=== PATIENT | female | born 1990 ===

== ENCOUNTER 2017-06-21 12:36 | Inpatient (IN) | payer OTHER ==
[2017-06-21] MEDS ORDERED: Sodium Chloride 0.9% 1,000 ML IV ONE (12:51)
[2017-06-21] MEDS: Sodium Chloride 0.9% 10 ML Syringe FLUSH PRN ×6 (12:59→21:06)
--- NOTE | 2017-06-21 13:14 | EDM.PDOC ---
ED HPI GENERAL MEDICAL PROBLEM - General Chief Complaint: Drug or Alcohol Abuse Stated Complaint: withdrawl Time Seen by Provider: 06/21/17 13:14 Source of Information: Reports: Patient, EMS, RN, RN Notes Reviewed History Limitations: Reports: Altered Mental Status, Uncooperative - History of Present Illness INITIAL COMMENTS - FREE TEXT/NARRATIVE: Patient brought to ER per [facility]. EMS states she told them she took 7 Trazadone over the past 2 hours prior to arrival. She states she took the Trazadone to help her sleep as she states she is in Heroin withdrawls. She states she last did heroin 3 days ago. She states she "doesn't feel good due to all the Trazadone in her body". Patient told EMS that she has not used heroin for 3 days. Patient c/o pain in her legs. Onset: Today, Sudden Location: Reports: Lower Extremity, Left, Lower Extremity, Right Severity: Moderate Improves with: Reports: None Worsens with: Reports: None Associated Symptoms: Reports: Other (pain in legs bilaterally, extrapyramidal movements) - Related Data Allergies Allergy/AdvReac Type Severity Reaction Status Date / Time No Known Allergies Allergy Verified 06/21/17 12:43 Home Meds: Home Meds . [Unable to Verify Home Med List] 06/21/17 [History] Past Medical History - Past Health History Medical/Surgical History: Denies Medical/Surgical History Social & Family History - Tobacco Use Smoking Status *Q: Unknown Ever Smoked - Recreational Drug Use Recreational Drug Type: Reports: Heroin ED ROS GENERAL - Review of Systems Review Of Systems: ROS reveals no pertinent complaints other than HPI. ED EXAM, GENERAL - Physical Exam Exam: See Below Exam Limited By: Uncooperative General Appearance: Anxious, Other (extrapyramidal movements) Eye Exam: Bilateral Eye: Normal Inspection, PERRL Ears: Normal External Exam, Hearing Grossly Normal Nose: Normal Inspection Throat/Mouth: Normal Inspection, Normal Lips, Normal Teeth, Normal Gums, Normal Voice, No Airway Compromise Head: Atraumatic, Normocephalic Neck: Normal Inspection, Full Range of Motion Respiratory/Chest: No Respiratory Distress, Lungs Clear, Normal Breath Sounds, No Accessory Muscle Use, Chest Non-Tender Cardiovascular: Normal Peripheral Pulses, Regular Rate, Rhythm, No Edema, No Gallop, No JVD, No Murmur, No Rub Peripheral Pulses: 2+: Radial (L), Radial (R) GI/Abdominal: Normal Bowel Sounds, Soft, Non-Tender (Female) Exam: Deferred Rectal (Female) Exam: Deferred Extremities: Normal Inspection, Normal Range of Motion, Leg Pain (bilaterally) Neurological: Alert, Oriented, Normal Cognition, Normal Gait, No Motor/Sensory Deficits Psychiatric: Anxious Skin Exam: Warm, Dry, Intact, Normal Color, No Rash Lymphatic: No Adenopathy Course - Vital Signs Last Recorded V/S: Last Vital Signs Temp 97.4 F 06/21/17 13:00 Pulse 79 06/21/17 13:00 Resp 20 06/21/17 13:00 BP 109/84 06/21/17 13:00 Pulse Ox 100 06/21/17 13:00 - Orders/Labs/Meds Orders: Active Orders 24 hr Category Date Time Status Peripheral IV Care [RC] . DIRECTED Care 06/21/17 12:44 Active Sodium Chloride 0.9% [Normal Saline] 1,000 ml Med 06/21/17 12:51 Active IV .BOLUS Sodium Chloride 0.9% [Saline Flush] Med 06/21/17 12:44 Active 10 ml FLUSH ASDIRECTED PRN diphenhydrAMINE [Benadryl] Med 06/21/17 13:39 Once 50 mg IVPUSH ONETIME ONE Peripheral IV Insertion Adult [OM.PC] Stat Oth 06/21/17 12:43 Ordered Medication Orders Sodium Chloride (Normal Saline) 1,000 mls @ 999 mls/hr IV .BOLUS ONE Stop: 06/21/17 13:51 Last Admin: 06/21/17 12:57 Dose: 999 mls/hr Sodium Chloride (Saline Flush) 10 ml FLUSH ASDIRECTED PRN PRN Reason: Keep Vein Open Last Admin: 06/21/17 12:59 Dose: 10 ml Labs: Laboratory Tests 06/21/17 06/21/17 06/21/17 Range/Units 12:41 12:41 12:41 WBC (5.0-10.0) 10^3/uL RBC (4.2-5.4) 10^6/uL Hgb (12.0-16.0) g/dL Hct (37.0-47.0) % MCV (80-100) fL MCH (27.0-34.0) pg MCHC (33.0-35.0) g/dL Plt Count (150-450) 10^3/uL Neut % (Auto) (42.2-75.2) % Lymph % (Auto) (20.5-50.1) % [place] % (Auto) (2-8) % Eos % (Auto) (1.0-3.0) % Baso % (Auto) (0.0-1.0) % Sodium (135-145) mmol/L Potassium (3.6-5.0) mmol/L Chloride (101-111) mmol/L Carbon Dioxide (21.0-31.0) mmol/L Anion Gap BUN (7-18) mg/dL Creatinine (0.6-1.3) mg/dL Est Cr Clr Drug Dosing mL/min Estimated GFR (MDRD) BUN/Creatinine Ratio Glucose (74-105) mg/dL Calcium (8.4-10.2) mg/dl Total Bilirubin (0.2-1.0) mg/dL AST (10-42) IU/L ALT (10-60) IU/L Alkaline Phosphatase (42-121) IU/L Total Protein (6.7-8.2) g/dl Albumin (3.2-5.5) g/dl Globulin Albumin/Globulin Ratio Urine Color Yellow (YELLOW) Urine Appearance Slightly cloudy (CLEAR) Urine pH 7.0 (5.0-9.0) Ur Specific [place] 1.015 (1.005-1.030) Urine Protein Negative (NEGATIVE) Urine Glucose (UA) Negative (NEGATIVE) Urine Ketones Negative (NEGATIVE) Urine Occult Blood Negative (NEGATIVE) Urine Nitrite Negative (NEGATIVE) Urine Bilirubin Negative (NEGATIVE) Urine Urobilinogen 0.2 (0.2-1.0) mg/dL Ur Leukocyte Esterase Negative (NEGATIVE) Urine RBC Not seen /HPF Urine WBC 0-5 (0-5/HPF) /HPF Ur Epithelial Cells Moderate H /HPF Urine Bacteria Few (0-FEW/HPF) /HPF Urine Mucus Few H /LPF Urine HCG, Qual Negative Salicylates Urine Opiates Screen Positive H (NEGATIVE) Ur Oxycodone Screen Negative (NEGATIVE) Urine Methadone Screen Negative (NEGATIVE) Acetaminophen Ur Barbiturates Screen Negative (NEGATIVE) U Tricyclic Antidepress Negative (NEGATIVE) Ur Phencyclidine Scrn Negative (NEGATIVE) Ur Amphetamine Screen Negative (NEGATIVE) U Methamphetamines Scrn Negative (NEGATIVE) Urine MDMA Screen Negative (NEGATIVE) U Benzodiazepines Scrn Negative (NEGATIVE) Urine Cocaine Screen Negative (NEGATIVE) U Marijuana (THC) Screen Negative (NEGATIVE) Ethyl Alcohol mg/dL 06/21/17 06/21/17 Range/Units 12:56 12:56 WBC 6.5 (5.0-10.0) 10^3/uL RBC 4.50 (4.2-5.4) 10^6/uL Hgb 13.5 (12.0-16.0) g/dL Hct 40.0 (37.0-47.0) % MCV 88.9 (80-100) fL MCH 30.0 (27.0-34.0) pg MCHC 33.8 (33.0-35.0) g/dL Plt Count 318 (150-450) 10^3/uL Neut % (Auto) 64.9 (42.2-75.2) % Lymph % (Auto) 23.8 (20.5-50.1) % [place] % (Auto) 8.2 H (2-8) % Eos % (Auto) 2.5 (1.0-3.0) % Baso % (Auto) 0.6 (0.0-1.0) % Sodium 141 (135-145) mmol/L Potassium 3.8 (3.6-5.0) mmol/L Chloride 109 (101-111) mmol/L Carbon Dioxide 21.0 (21.0-31.0) mmol/L Anion Gap 14.8 BUN 10 (7-18) mg/dL Creatinine 0.6 (0.6-1.3) mg/dL Est Cr Clr Drug Dosing 147.19 mL/min Estimated GFR (MDRD) > 60 BUN/Creatinine Ratio 16.66 Glucose 119 H (74-105) mg/dL Calcium 9.7 (8.4-10.2) mg/dl Total Bilirubin 0.4 (0.2-1.0) mg/dL AST 24 (10-42) IU/L ALT 15 (10-60) IU/L Alkaline Phosphatase 41 L (42-121) IU/L Total Protein 7.7 (6.7-8.2) g/dl Albumin 4.5 (3.2-5.5) g/dl Globulin 3.2 Albumin/Globulin Ratio 1.41 Urine Color (YELLOW) Urine Appearance (CLEAR) Urine pH (5.0-9.0) Ur Specific [place] (1.005-1.030) Urine Protein (NEGATIVE) Urine Glucose (UA) (NEGATIVE) Urine Ketones (NEGATIVE) Urine Occult Blood (NEGATIVE) Urine Nitrite (NEGATIVE) Urine Bilirubin (NEGATIVE) Urine Urobilinogen (0.2-1.0) mg/dL Ur Leukocyte Esterase (NEGATIVE) Urine RBC /HPF Urine WBC (0-5/HPF) /HPF Ur Epithelial Cells /HPF Urine Bacteria (0-FEW/HPF) /HPF Urine Mucus /LPF Urine HCG, Qual Salicylates < 4 Urine Opiates Screen (NEGATIVE) Ur Oxycodone Screen (NEGATIVE) Urine Methadone Screen (NEGATIVE) Acetaminophen < 10 Ur Barbiturates Screen (NEGATIVE) U Tricyclic Antidepress (NEGATIVE) Ur Phencyclidine Scrn (NEGATIVE) Ur Amphetamine Screen (NEGATIVE) U Methamphetamines Scrn (NEGATIVE) Urine MDMA Screen (NEGATIVE) U Benzodiazepines Scrn (NEGATIVE) Urine Cocaine Screen (NEGATIVE) U Marijuana (THC) Screen (NEGATIVE) Ethyl Alcohol < 5 mg/dL Meds: Medications Generic Name Dose Route Start Last Admin Trade Name Freq PRN Reason Stop Dose Admin Sodium Chloride 1,000 mls @ 999 mls/hr 06/21/17 12:51 06/21/17 12:57 Normal Saline IV 06/21/17 13:51 999 mls/hr .BOLUS ONE Administration Sodium Chloride 10 ml 06/21/17 12:44 06/21/17 12:59 Saline Flush FLUSH 10 ml ASDIRECTED PRN Administration Keep Vein Open Discontinued Medications Generic Name Dose Route Start Last Admin Trade Name Freq PRN Reason Stop Dose Admin Lorazepam 1 mg 06/21/17 13:18 06/21/17 13:24 Ativan IVPUSH 06/21/17 13:19 1 mg ONETIME ONE Administration Departure - Departure Time of Disposition: 13:44 Disposition: Refer to Observation Condition: Fair, Serious Clinical Impression: Drug dependence, Drug abuse Drug withdrawal Qualifiers: Substance type: opioid Qualified Code(s): F11.23 - Opioid dependence with withdrawal - Discharge Information Forms: ED Department Discharge - My Orders Last 24 Hours: My Active Orders 06/21/17 13:39 diphenhydrAMINE [Benadryl] 50 mg IVPUSH ONETIME ONE - Assessment/Plan Last 24 Hours: My Active Orders 06/21/17 13:39 diphenhydrAMINE [Benadryl] 50 mg IVPUSH ONETIME ONE
[2017-06-21] MEDS ORDERED: LORazepam 2 MG/ML Syringe IVPUSH ONE ×2 (13:18→13:48)
[2017-06-21 13:21] LABS: CHLORIDE,CL 109 mmol/L (101-111); SODIUM,NA 141 mmol/L (135-145)
[2017-06-21 13:22] LABS: ACETAMINOPHEN < 10
[2017-06-21] MEDS ORDERED: diphenhydrAMINE 50 MG/ML SDV IVPUSH ONE (13:39)
[2017-06-21] MEDS ORDERED: LORazepam 2 MG/ML Syringe ONE (13:52)
[2017-06-21] MEDS ORDERED: Promethazine 25 MG/ML SDV IM PRN (14:54)
[2017-06-21] MEDS ORDERED: Ibuprofen 400 MG Tab PO PRN (14:54)
[2017-06-21] MEDS ORDERED: Promethazine 25 MG Tab PO PRN (14:54)
[2017-06-21] MEDS ORDERED: diphenhydrAMINE 50 MG/ML SDV IVPUSH PRN (15:05)
[2017-06-21] MEDS ORDERED: Sodium Chloride 0.9% 1,000 ML IV SCH (15:15)
[2017-06-21] MEDS: LORazepam 2 MG/ML Syringe IVPUSH PRN ×3 (17:29→21:07)
--- NOTE | 2017-06-21 20:58 | HP ---
CHIEF COMPLAINT: Overdosed with trazodone. HISTORY OF PRESENTING ILLNESS: Ms. Jorge L Wagner is a 26-year-old female with medical history significant panic without agoraphobia, major depressive disorder, conduct disorder, learning disorder, history of pyelonephritis in the past, history of major depression with recurrent episodes in the past and has been abusing heroin for the last few days as per her family members. She has been smoking heroin and last night, she could not hardly sleep, so she kept taking the trazodone, she took at least 7 tablets of trazodone, which were her dad's medication, trying to fall asleep, and then started having mild episodes of confusion, so family members got concerned and brought her to the emergency room. While in the emergency room, the patient did receive some Ativan to calm her down and the patient is slightly drowsy at this time. She continues to have thrashing movements, so could not get a detailed history from the patient, who is little sedated from the Ativan, so history is highly limited in this patient, so most of the history is obtained from her family members in the room. As per the family members, the patient did not have any fevers or chills in the last 2 days. No nausea, vomiting, or diarrhea in the last few days. No headaches. No changes in the vision in the last few days. Her last heroin use was 5 days back. She usually smokes. She did not have any history of IV drug abuse. She did not have any history of methamphetamine use as per the family members. She did not have any similar episodes in the past. She was not suicidal or homicidal as per the family members. No further history could be obtained from this patient. REVIEW OF SYSTEMS: Highly limited. Could not obtain review of systems from this patient, who is a little sedated from Ativan. PAST MEDICAL HISTORY: Significant for: 1. Major depressive disorder. 2. Panic disorder. 3. Social phobia. 4. Learning disorder. 5. Conduct disorder. 6. Pyelonephritis, as reviewed from the chart. PAST SURGICAL HISTORY: None significant. ALLERGIC HISTORY: No known drug allergies, as reviewed from the chart. HOME MEDICATIONS: None. SOCIAL HISTORY: 1. Patient has history of drug abuse with heroin. 2. No history of alcohol and no history of tobacco as per the family members. PHYSICAL EXAMINATION: Vital Signs: Temperature of 98, pulse of 97, blood pressure 119/73, respiratory rate of 20, saturating at 99% on room air. General Appearance: The patient is not oriented to time, place, and person. She is mostly drowsy. She is arousable with painful stimuli. She keeps having this thrashing movements around. Cardiovascular System: S1, S2 heard with normal intensity. No gallops. Respiratory: Clear to auscultation bilaterally. No wheeze. No crepitations. Abdomen: Soft. Bowel sounds are positive. No rigidity. No guarding. Extremities: No edema in bilateral lower extremities. Neurology: Could not be completed secondary to patient being sedated from Ativan. Again, physical examination also limited secondary to the patient having thrashing movements. LABORATORY DATA: 1. WBC 6.5, hemoglobin 13.5, hematocrit 40, platelet count 318. 2. Sodium 141, potassium 3.8, chloride 109, bicarb 21, BUN 10, creatinine 0.6, glucose 119, total bilirubin 0.4, AST 24, ALT 15, alkaline phosphorus 41. 3. Urinalysis is negative for nitrites, negative for leukocytes, moderate epithelial cells. 4. Toxicology screen is positive for urine opiates. Ethyl alcohol less than 5. Urine HCG is negative. ASSESSMENT: 1. Acute encephalopathy. 2. Drug overdose with trazodone. 3. Substance abuse with heroin. 4. History of major depression. 5. History of panic disorder. PLAN: 1. Acute encephalopathy. Patient appears to be confused at this time, unsure if this is resulting from trazodone overdose or if this is resulting from Ativan she received from the ER. In any case, the patient will be referred to observation status. We will have her on IV fluids. We will check her vitals every 4 hourly. We will keep her in euvolemic status, and we will also get a Tylenol level and salicylate level at this time. We will have her on CIWA protocol. Use Ativan as needed for anxiety. We will closely follow. 2. Substance abuse. The patient has history of heroin use, unsure if patient has any heroin withdrawals at this time. We will continue CIWA protocol. We will give supportive care. We will keep her hydrated with IV fluids. The patient's vitals remain stable for now. Check her vitals every 4 hourly. The patient does not have any nausea or vomiting. We will have her on antiemetic protocol. The patient does not have any diarrhea at this time. We will use clonidine 0.1 mg as needed for systolic blood pressure greater than 160 and use diazepam as needed IV. We will closely follow. 3. Deep venous thrombosis prophylaxis. We will have her on heparin 5000 subcutaneously q.12 hourly for deep venous thrombosis prophylaxis. 4. Code status. The patient will be kept on full code. Discussed with ER physician regarding the plan of care. Reviewed the labs and medications. Reviewed the old charts. [facility] /[id number]
[2017-06-21] MEDS ORDERED: Haloperidol Lactate 5 MG/ML SDV IM ONE (21:26)
[2017-06-21] MEDS ORDERED: Haloperidol Lactate 5 MG/ML SDV IM PRN (22:09)
[2017-06-21] MEDS ORDERED: OLANZapine 10 MG Vial IM PRN (22:15)
[2017-06-22] MEDS: LORazepam 2 MG/ML Syringe IVPUSH PRN ×2 (01:28→03:30)
[2017-06-22] MEDS: Methadone 5 MG Tab PO PRN ×2 (01:31→19:06)
[2017-06-22] MEDS: Enoxaparin 40 MG/0.4 ML Syringe SUBCUT SCH (08:48)
[2017-06-22 09:12] LABS: CHLORIDE,CL 107 mmol/L (101-111); SODIUM,NA 140 mmol/L (135-145)
[2017-06-22] MEDS: Dextrose 5%-0.9% NaCl with KCl 1,000 ML IV SCH ×2 (12:51→23:27)
--- NOTE | 2017-06-22 12:57 | PN ---
DATE: 06/22/2017 SUBJECTIVE: Ms. Jorge L Wagner is a 26-year-old female with medical history significant for major depressive disorder, conduct disorder, learning disorder, history of pyelonephritis in the past, and history of substance abuse with heroin, was admitted to the hospital with drug overdose with trazodone and was noted to be in acute encephalopathic state. For the last 24 hours, the patient continued to have acute agitated state and confusional state. She required multiple doses of Valium, Ativan, and Haldol; and she finally went to sleep at around 04:30 to 5 in the morning, and since then, she has been sleeping, but vitals are maintained well. REVIEW OF SYSTEMS: Could not be obtained at this time. PHYSICAL EXAMINATION: Vital Signs: Temperature of 98.2, pulse of 80, blood pressure of 96/59, respiratory rate of 20, and saturating at 98% on room air. General Appearance: The patient is excessively sedated with all the medication she got with Ativan and Haldol. Respiratory System: Clear to auscultation bilaterally. No wheeze. No crepitations. Cardiovascular System: S1 and S2 heard with normal intensity. Abdomen: Soft. No rigidity. No guarding. Extremities: No edema in bilateral lower extremities. MEDICATIONS: Reviewed. Continue with: 1. Lovenox 40 mg subcutaneous daily. 2. Haldol 5 mg IM every 8 hours as needed for agitation. 3. Ibuprofen 400 mg every 6 hours as needed for pain. 4. Ativan as needed as per [facility] protocol. 5. The patient was given methadone 20 mg q.12 hourly as needed for agitation. 6. Zyprexa 5 mg IM every 6 hours as needed for agitation. 7. Potassium chloride 20 mEq twice a day. 8. Phenergan 12.5 mg IM every 6 hours as needed for nausea and vomiting. LABORATORY DATA: 1. WBC 6.6, hemoglobin 14, hematocrit 41.3, platelet count 315. 2. Sodium 140, potassium 3.3, chloride 107, bicarb 22, BUN 10, creatinine 0.6. ASSESSMENT: 1. Drug overdose with trazodone. She took 7 tablets. 2. Substance abuse with heroin addiction. 3. Hypokalemia. 4. Major depressive disorder. PLAN: 1. Substance abuse. The patient has been abusing heroin. She was at a detox program in the past as per the family members at bedside. She was in [facility] last year and was on methadone at that time, but she has been taking the methadone for the last 1 year. structural iron worker will be consulted at this time to get her into a detox program if needed. 2. Hypokalemia. We will replace with oral potassium chloride. 3. Acute encephalopathy. This is mainly from drug overdose with trazodone which seems to be improved. She received multiple doses of Ativan and Haldol which have controlled her acute agitative state; and this morning, she is sedated, but her vitals remain stable. We will closely monitor her vitals. Discussed with family members at bedside. [facility] /[id number]
[2017-06-22 13:53] LABS: ACETAMINOPHEN < 10
[2017-06-22] MEDS: Potassium Chloride 10 MEQ Tab.ER PO SCH ×3 (15:21→19:07)
[2017-06-23] MEDS: Dextrose 5%-0.9% NaCl with KCl 1,000 ML IV SCH (09:29)
[2017-06-23] MEDS: Potassium Chloride 10 MEQ Tab.ER PO SCH (09:31)
[2017-06-23] MEDS: Enoxaparin 40 MG/0.4 ML Syringe SUBCUT SCH (09:31)
[2017-06-23 11:19] LABS: CHLORIDE,CL 108 mmol/L (101-111); SODIUM,NA 138 mmol/L (135-145)
[2017-06-23 11:36] VITALS: BP 91/54
--- NOTE | 2017-06-24 08:53 | DISCH ---
ADMITTING DIAGNOSES: 1. Acute encephalopathy, secondary to overdose with medication. 2. Substance abuse with heroin. DISCHARGE DIAGNOSES: 1. Acute encephalopathy, secondary to drug overdose with trazodone, resolved. 2. Substance abuse with heroin. 3. History of depression in the past. HISTORY OF PRESENT ILLNESS: Ms. Kristy Coats is a 26-year-old female with medical history significant for major depressive disorder, conduct disorder, learning disorder, and history of heroin abuse, was admitted to the hospital with acute encephalopathic state. The patient was drug overdosed on trazodone. She took around 7 tablets of trazodone prior to coming to the hospital in effort to sleep better as per the patient and family members. The patient was admitted and was noted to be in acute encephalopathic state. She required multiple doses of diazepam and Ativan. She required multiple doses of Haldol on this admission. She had possible withdrawal from heroin. She also received methadone on this admission, after which, her symptoms got much improved. She was noted to have mild hypokalemia, requiring oral potassium chloride supplement at the time of discharge. She was treated with IV fluids, with D5 normal saline, with potassium chloride, which has improved her potassium levels. The patient is more awake and alert on the day of discharge. She is well oriented to time, place, and person. She is able to ambulate well without any difficulty. supervisor cemetery workers was consulted and made arrangements for her to meet with [facility] [place], who had assisted with the patient in the hospital and has recommended for her to follow them as an outpatient tomorrow at 09:30 a.m. The patient remained hemodynamically stable on this admission. She was educated about ill effects of heroin abuse on her health and strongly encouraged her to quit abusing heroin; and she is actually from [facility], and she was in detox program in the past on methadone program, and she had quit taking methadone in the last 1 year, so the patient is encouraged to go back into that program again and start using the methadone and help her to quit using the heroin, which she understands the same. She denied any suicidal thoughts or homicidal thoughts at this time. She denies any depressive thoughts at this time. She is also advised to follow with Psychiatry as an outpatient. She remained hemodynamically stable on this admission. She is discharged home in stable condition. DISCHARGE MEDICATIONS: Include potassium chloride 20 mEq twice a day for the next 5 days. PHYSICAL EXAMINATION: On the day of discharge: Vital Signs: Temperature of 97.5, pulse of 66, blood pressure of 91/54, respiratory rate of 20, and saturating at 95% on room air. General Appearance: The patient is well oriented to time, place, and person. Follows commands spontaneously. Cardiovascular System: S1 and S2 heard with normal intensity. No gallops. Respiratory System: Clear to auscultation bilaterally. No wheeze. No crepitations. Abdomen: Soft. Bowel sounds positive. Nontender. No rigidity. Extremities: No edema in bilateral lower extremities. Neurology: No gross focal neurological deficits. CONDITION ON ADMISSION: Poor. CONDITION ON DISCHARGE: Stable. DISPOSITION: Discharged to home. ACTIVITY: As tolerated. DIET: Regular diet. FOLLOWUP: The patient is advised to follow up with Human Service, has an appointment tomorrow at 09:30. The patient is also advised to follow with the psychiatrist as scheduled. TIME SPENT: Spent over 35 minutes of time in evaluating and treating this patient and making discharge planning. [facility] /[id number]
== END 2017-06-23 12:50 | disposition home or self-care (01) | DRG 917 ==
LOC: DL.ED 12:36 → DL.MS 13:50 → UNDOADMOB 13:50 → DL.MS 14:54 → UNDOADMOB 14:54 → OBSVTOIN 06-22 14:23
PROVIDERS: ADMIT Internal Medicine; ATTEND Internal Medicine
DX: F11.23 Opioid dependence with withdrawal (principal); R41.82 Altered mental status, unspecified; T43.211A Poisoning by selective serotonin and norepinephrine reuptake inhibitors, accidental (unintentional), initial encounter; G92 Toxic encephalopathy; F11.93 Opioid use, unspecified with withdrawal; R41.0 Disorientation, unspecified; Y92.009 Unspecified place in unspecified non-institutional (private) residence as the place of occurrence of the external cause; F32.9 Major depressive disorder, single episode, unspecified; F81.9 Developmental disorder of scholastic skills, unspecified; F40.10 Social phobia, unspecified; E87.6 Hypokalemia
CPT/HCPCS: 96375 ×2; 96361 ×2; 96376 ×3; 96372; 96374 ×2; 99285; 85025; 85027; 81001; 36415 ×2; 80053; 80048; 84100; 83735; 82550; 82553; 81025; 80305; J3360 ×3; J1200 ×2; J1650; J1630; A9270; J7030; J7050 ×6; J3480; J2550; J2060 ×7; G0378; G0480 ×5; 99284; S0166